=== PATIENT | male | born 1955 | race Caucasian/White ===

== ENCOUNTER 2024-02-07 14:15 | Inpatient (IN) | payer MEDICARE, OTHER ==
[~2024-02-07] VITALS: Ht 165.1 cm; Wt 67.6 kg
[2024-02-07] MEDS ORDERED: OLAN15TA3 PO (14:25)
[2024-02-07] MEDS ORDERED: DIVA250T4 PO (14:25)
[2024-02-07] MEDS ORDERED: BENZ2TAB7 PO (14:25)
[2024-02-07 14:43] LABS: BASOPHILS % (AUTO) 0.6 % (0.0-2.0); EOSINOPHILS # (AUTO) 0.3 K/uL (0.0-0.7); EOSINOPHILS % (AUTO) 4.6 % (0.0-7.0); HEMATOCRIT 42.2 % (36.7-47.1); HEMOGLOBIN 13.6 g/dL (12.5-16.3); LYMPHOCYTES # (AUTO) 1.5 K/uL (0.8-4.8); LYMPHOCYTES % (AUTO) 20.5 % (20.5-51.5); MEAN CORPUSCULAR HEMOGLOBIN 26.4 uug (23.8-33.4); MEAN CORPUSCULAR HGB CONC 32 g/dL (32.5-36.3); MEAN CORPUSCULAR VOLUME 82.3 fL (73.0-96.2); MONOCYTES # (AUTO) 0.7 K/uL (0.1-1.30); MONOCYTES % (AUTO) 9.2 % (0.0-11.0); NEUTROPHILS # (AUTO) 4.7 K/uL (1.8-8.9); NEUTROPHILS % (AUTO) 65.1 % (38.5-71.5); PLATELET COUNT (AUTO) 161 K/uL (152-348); RED BLOOD CELL COUNT(AUTO) 5.12 MIL/uL (4.06-5.63); RED CELL DISTRIBUTION WIDTH 18.2 % (12.1-16.2); WHITE BLOOD COUNT (AUTO) 7.2 K/uL (3.6-10.2)
[2024-02-07 14:44] LABS: CALCIUM 8.8 mg/dL (8.5-10.1); CARBON DIOXIDE 27 mmol/L (21-32); CHLORIDE 106 mmol/L (98-107); GLUCOSE 110 mg/dL (74-106); POTASSIUM 4.1 mmol/L (3.5-5.1); SODIUM SERUM 141 mmol/L (136-145); UREA NITROGEN, BLOOD 16 mg/dL (7-18)
[2024-02-07 14:45] LABS: AMMONIA 25 umol/L (11-32)
[2024-02-07 14:47] LABS: DIFFERENTIAL COMMENT 1
[2024-02-07 14:52] LABS: ALANINE AMINOTRANSFERASE 6 U/L (16-63); ALBUMIN 3.3 g/dL (3.4-5.0); ALKALINE PHOSPHATASE 83 U/L (50-136); ASPARTATE AMINOTRANSFERASE 5 U/L (15-37); BILIRUBIN,DIRECT 0.1 mg/dL (0.0-0.2); BILIRUBIN,TOTAL 0.3 mg/dL (0.2-1.0)
[2024-02-07 14:58] LABS: ACETAMINOPHEN < 2.0 ug/mL (10-30)
[2024-02-07 15:10] LABS: ETHANOL < 3 MG/DL (0-10)
[2024-02-07 19:02] VITALS: BP 132/78; TEMP 98.2; O2SAT 95
[2024-02-07 20:00] VITALS: BP 132/64; TEMP 98.1; O2SAT 98
[2024-02-07] MEDS ORDERED: LORAZEPAM 1 MG TABLET PO PRN ×2 (20:00)
[2024-02-07] MEDS ORDERED: MAGNESIUM HYDROXIDE 30 ML LIQUID UDC PO PRN (20:00)
[2024-02-07] MEDS ORDERED: ZOLPIDEM 5 MG TABLET PO PRN ×2 (20:00)
[2024-02-07] MEDS ORDERED: MAG HYDROX/AL HYDROX/SIMETH 30 ML LIQUID UDC PO PRN (20:00)
[2024-02-07] MEDS: BLOOD SUGAR DIAGNOSTIC 1 EACH STRIP VI ONE (20:37)
[2024-02-08] MEDS ORDERED: ZOLPIDEM 5 MG TABLET PO PRN (06:00)
[2024-02-08 08:02] VITALS: BP 129/87; TEMP 98; O2SAT 100
[2024-02-08 09:16] LABS: BASOPHILS % (AUTO) 0.5 % (0.0-2.0); EOSINOPHILS # (AUTO) 0.3 K/uL (0.0-0.7); EOSINOPHILS % (AUTO) 3.9 % (0.0-7.0); HEMATOCRIT 43.5 % (36.7-47.1); HEMOGLOBIN 14.2 g/dL (12.5-16.3); LYMPHOCYTES # (AUTO) 1.3 K/uL (0.8-4.8); LYMPHOCYTES % (AUTO) 17.4 % (20.5-51.5); MEAN CORPUSCULAR HGB CONC 33 g/dL (32.5-36.3); MEAN CORPUSCULAR VOLUME 82.5 fL (73.0-96.2); MONOCYTES # (AUTO) 0.8 K/uL (0.1-1.30); MONOCYTES % (AUTO) 9.8 % (0.0-11.0); NEUTROPHILS # (AUTO) 5.3 K/uL (1.8-8.9); NEUTROPHILS % (AUTO) 68.4 % (38.5-71.5); PLATELET COUNT (AUTO) 145 K/uL (152-348); RED BLOOD CELL COUNT(AUTO) 5.27 MIL/uL (4.06-5.63); RED CELL DISTRIBUTION WIDTH 18.2 % (12.1-16.2); WHITE BLOOD COUNT (AUTO) 7.7 K/uL (3.6-10.2)
[2024-02-08 09:19] LABS: DIFFERENTIAL COMMENT 1
[2024-02-08 09:27] LABS: ALANINE AMINOTRANSFERASE < 6 U/L (16-63); ALBUMIN 3.1 g/dL (3.4-5.0); ALKALINE PHOSPHATASE 80 U/L (50-136); ASPARTATE AMINOTRANSFERASE 9 U/L (15-37); BILIRUBIN,TOTAL 0.6 mg/dL (0.2-1.0); CALCIUM 8.2 mg/dL (8.5-10.1); CARBON DIOXIDE 27 mmol/L (21-32); CHLORIDE 104 mmol/L (98-107); GLUCOSE 127 mg/dL (74-106); GLUCOSE FASTING 127 mg/dL (70-115); MAGNESIUM 1.9 mg/dL (1.8-2.4); PHOSPHOROUS 3.1 mg/dL (2.5-4.9); POTASSIUM 4.3 mmol/L (3.5-5.1); SODIUM SERUM 137 mmol/L (136-145); TOTAL PROTEIN, SERUM 7.7 g/dL (6.4-8.2); UREA NITROGEN, BLOOD 17 mg/dL (7-18)
[2024-02-08 09:28] LABS: THYROID STIMULATING HORMONE 2.814 mIU/mL (0.358-3.740)
[2024-02-08 09:42] LABS: CHOLESTEROL 149 mg/dL (<200); HDL CHOLESTEROL 45 mg/dL (40-60); TRIGLYCERIDES 104 MG/DL (30-150)
[2024-02-08] MEDS: DIVALPROEX 250 MG TABLET.DR PO SCH (10:40)
[2024-02-08] MEDS: OLANZAPINE ZYDIS 5 MG TAB.RAPDIS PO SCH (10:40)
[2024-02-08 15:00] VITALS: BP_SYST 115; BP_SYST 116; BP_DIAS 74; BP_DIAS 76; TEMP 98; TEMP 98.1; O2SAT 98; O2SAT 99
[2024-02-08 20:25] VITALS: BP 116/74; TEMP 98.1; O2SAT 98
[2024-02-09] MEDS: LORAZEPAM 1 MG TABLET PO PRN (21:27)
[2024-02-09 21:37] VITALS: BP 121/79; TEMP 98; O2SAT 100
[2024-02-10 08:45] VITALS: BP 106/70; TEMP 97.8; O2SAT 98
[2024-02-10] MEDS: DIVALPROEX 250 MG TABLET.DR PO SCH (12:05)
[2024-02-10] MEDS: DIVALPROEX 500 MG TABLET.DR PO SCH (16:35)
[2024-02-10 16:40] VITALS: BP 109/77; TEMP 97.9; O2SAT 98
[2024-02-10 20:12] VITALS: BP 104/71; TEMP 98; O2SAT 98
[2024-02-11 08:19] VITALS: BP 119/73; TEMP 97.5; O2SAT 98
[2024-02-11 16:34] VITALS: BP 120/79; TEMP 97.6; O2SAT 98
[2024-02-11] MEDS: OLANZAPINE ZYDIS 5 MG TAB.RAPDIS PO SCH (16:56)
[2024-02-11 20:24] VITALS: BP 135/66; TEMP 98.1; O2SAT 96
[2024-02-11] MEDS: ACETAMINOPHEN 325 MG TABLET PO PRN (20:40)
[2024-02-12] MEDS: OLANZAPINE ZYDIS 5 MG TAB.RAPDIS PO SCH (08:14)
[2024-02-12 08:36] VITALS: BP 115/81; TEMP 98; O2SAT 96
[2024-02-12 15:06] VITALS: BP 108/76; TEMP 98; O2SAT 98
[2024-02-12 20:00] VITALS: BP 120/74; TEMP 98.1; O2SAT 96
[2024-02-13 07:46] VITALS: BP 127/75; TEMP 98; O2SAT 96
[2024-02-13 16:04] VITALS: BP 115/75; TEMP 98; O2SAT 98
[2024-02-13 20:00] VITALS: BP 131/65; TEMP 97.9; O2SAT 97
[2024-02-14 07:56] VITALS: BP 134/85; TEMP 98.2; O2SAT 98
[2024-02-14 15:37] VITALS: BP 121/72; TEMP 97.8; O2SAT 94
[2024-02-14 20:00] VITALS: BP 117/71; TEMP 98; O2SAT 98
[2024-02-15 07:53] VITALS: BP 104/75; TEMP 98.2; O2SAT 96
[2024-02-15 15:54] VITALS: BP 90/65; TEMP 98.6; O2SAT 96
[2024-02-15 19:51] VITALS: BP 106/68; TEMP 98; O2SAT 95
[2024-02-16 08:00] VITALS: BP 112/74; TEMP 98; O2SAT 92
[2024-02-16 16:19] VITALS: BP 112/65; TEMP 98; O2SAT 94
[2024-02-16] MEDS: DIVALPROEX 500 MG TABLET.DR PO SCH (18:28)
[2024-02-16 20:03] VITALS: BP 98/57; TEMP 98; O2SAT 99
[2024-02-17 08:00] VITALS: BP 107/69; TEMP 97.7; O2SAT 96
[2024-02-17 15:32] VITALS: BP 118/71; TEMP 97.6; O2SAT 97
[2024-02-17 20:12] VITALS: BP 112/71; TEMP 98; O2SAT 96
[2024-02-18 08:07] VITALS: BP 99/61; TEMP 98.2; O2SAT 98
[2024-02-18 15:55] VITALS: BP 127/76; TEMP 98.1; O2SAT 96
[2024-02-19 07:45] VITALS: BP 107/65; TEMP 98; O2SAT 94
[2024-02-19 15:14] VITALS: BP 106/75; TEMP 98.8; O2SAT 96
[2024-02-19 19:55] VITALS: BP 112/56; TEMP 98.1; O2SAT 96
[2024-02-20 08:27] VITALS: BP 118/72; TEMP 98; O2SAT 98
[2024-02-20 15:20] VITALS: BP 130/79; TEMP 98.2; O2SAT 96
[2024-02-20 20:00] VITALS: BP 112/80; TEMP 97.6; O2SAT 95
[2024-02-21 08:17] VITALS: BP 106/74; TEMP 98; O2SAT 99
== END 2024-02-21 11:40 | DRG 885 ==
LOC: ER 14:15 → GPS 17:31
PROVIDERS: ADMIT Psychiatry & Neurology Psychiatry; ATTEND Nurse Practitioner Acute Care
DX: F25.0 Schizoaffective disorder, bipolar type (principal); E44.1 Mild protein-calorie malnutrition; E78.5 Hyperlipidemia, unspecified; F41.9 Anxiety disorder, unspecified; G24.01 Drug induced subacute dyskinesia; F17.210 Nicotine dependence, cigarettes, uncomplicated; Z86.16 Personal history of COVID-19; E88.09 Other disorders of plasma-protein metabolism, not elsewhere classified; M62.81 Muscle weakness (generalized); Z79.899 Other long term (current) drug therapy
CPT/HCPCS: 36415; 70450; 71045; 80164; 83735; 84100; 84443; 84484; 85025; 85730; 93005; A4606; A4663; G0480; J3490